=== PATIENT | female | born 1940 | race Caucasian/White ===

== ENCOUNTER → 2016-07-28 | Outpatient (CLI) | payer MEDICARE, OTHER | LOC: RAD 12:48 | PROVIDERS: ATTEND Specialist | DX: C34.90 Malignant neoplasm of unspecified part of unspecified bronchus or lung (principal) | CPT/HCPCS: 82565; 70553; A9577 ==

== ENCOUNTER → 2016-08-01 | Outpatient (CLI) | payer MEDICARE, OTHER | LOC: RAD 09:57 | PROVIDERS: ATTEND Specialist | DX: C34.90 Malignant neoplasm of unspecified part of unspecified bronchus or lung (principal) | CPT/HCPCS: 71260 ==

== ENCOUNTER → 2016-10-21 | Outpatient (CLI) | payer MEDICARE, OTHER | LOC: RAD 07:42 | PROVIDERS: ATTEND Specialist | DX: C34.90 Malignant neoplasm of unspecified part of unspecified bronchus or lung (principal) | CPT/HCPCS: 71260; 74160; 82565 ==

== ENCOUNTER → 2016-12-31 | Outpatient (CLI) | payer MEDICARE, OTHER ==
--- NOTE | 2016-12-31 14:07 | RADIOLOGY REPORT (SQ) ---
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 Images reviewed with lung, soft tissue and bone windows. Reconstructed coronal and sagittal MPR images reviewed. All images stored on PACS. All CT scanners at this facility use dose modulation, iterative reconstruction, and/or weight based d osing when appropriate to reduce radiation dose to as low as reasonably achievable (ALARA). [facility]: Dose Right [facility]: CareDose [facility]: Dose Right [facility]: Teradose 4D [facility]: [employer] CONTRAST TYPE AND DOSE: contrast/concentration: Isovue 370.00 mg/ml; Total Contrast Delivered: 80.0 ml; Total Saline Delivered: 54.0 ml RENAL FUNCTION: Creatinine 0.6 RADIATION DOSE: Up-to-date CT equipment and radiation dose reduction techniques were employed. CTDIv ol: 3.1 mGy. DLP: 122 mGy-cm. . LIMITATIONS: None. FINDINGS: LUNGS AND PLEURA: Post right upper lobectomy. Benign calcified granuloma right lower lobe image 83. No worrisome pulmonary nodules. No focal pulmonary infiltrates. No pleural effusions. No pneumothorax. Diffuse obstructive lung disease. HILAR AND MEDIASTINAL STRUCTURES: No identified masses or abnormal nodes. HEART AND VASCULAR STRUCTURES: No aneurysm or dissection. No central pulmonary emboli. No pericardi al effusion. Minimal coronary artery calcification HARDWARE: Left-sided permanent central line tip superior vena cava UPPER ABDOMEN: No significant findings. Limited exam. THYROID AND OTHER SOFT TISSUES: No masses. No adenopathy. BONES: No significant finding. OTHER: No other significant finding. IMPRESSION: Post right upper lobectomy. Left-sided permanent central line tip superior vena cava. Obstructive lung disease. No other significant findings. TECHNICAL DOCUMENTATION: JOB ID: [id number] Quality ID # [id number]: Final reports with documentation of one or more dose reduction techniques (e.g., Au tomated exposure control, adjustment of the mA and/or kV according to patient size, use of iterative reconstruction technique) 2010 [employer]- All Rights Reserved
== END ==
LOC: RAD 12:40
PROVIDERS: ATTEND Specialist
DX: C34.90 Malignant neoplasm of unspecified part of unspecified bronchus or lung (principal)
CPT/HCPCS: 71260; 82565

== ENCOUNTER 2017-01-23 20:05 | Emergency (ER) | payer MEDICARE, OTHER ==
[2017-01-23] MEDS ORDERED: DIPH/PERTUSS(ACELL)/TETANUS VAC/PF 0.5 ML SYR (>=10YO) IM ONE (20:24)
--- NOTE | 2017-01-23 20:25 | ER Document Report ---
ED Medical Screen (RME) - General Chief Complaint: Fall Stated Complaint: FALL/RIGHT EYE INJURY Time Seen by Provider: 01/23/17 20:17 Notes: Patient is a 76 year old female presenting to the emergency department after a fall. Patient tripped over her 's foot and fell from standing and hit her head. Patient did not catch her fall with her hands/arms.Patient denies any vomiting or loss of consciousness Patient is on xarelto for a-fib. Patient states she also twisted her leg and is having pain in her right hip. Patient has some sciatic nerve pain in the right hip and she has been evaluated for such. Patient has no known allergies. TRAVEL OUTSIDE OF THE [place] IN LAST 30 DAYS: No - Related Data Allergies/Adverse Reactions: No Known Allergies Allergy (Unverified 09/23/16 08:50) Past Medical History Renal/ Medical History: Denies: Hx Peritoneal Dialysis - Immunizations Hx Diphtheria, Pertussis, Tetanus Vaccination: No Physical Exam - Vital signs Vitals: Temp Pulse BP Pulse Ox 97.9 F 73 134/64 H 95 01/23/17 20:13 01/23/17 20:13 01/23/17 20:13 01/23/17 20:13 - Notes Notes: GENERAL: Alert, interacts well. LUNGS: Clear to auscultation bilaterally, no wheezes, rales, or rhonchi. No respiratory distress. HEART: Regular rate and rhythm. No murmurs, gallops, or rubs. ABDOMEN: Soft, non-tender. Non-distended. Bowel sounds present in all 4 quadrants. EXTREMITIES: Patient has some pain with ROM to her right hip. SKIN: patient has 2 non-gaping lacerations just above the right eye brow which are 3cm and 6cm in length; there is moderate swelling with no stepoffs to the superior orbital ridge, slight drooping to the right upper eyelid; there is a hematoma above the right eyebrow. There is a skin tear to the right forearm. Course - Vital Signs Vital signs: Temp Pulse Resp BP Pulse Ox 97.9 F 73 134/64 H 95 01/23/17 20:13 01/23/17 20:13 01/23/17 20:13 01/23/17 20:13 Scribe Documentation - Scribe Written by Shadi:: Shadi Werner 01/23/17 20:28 acting as scribe for :: Suri
--- NOTE | 2017-01-23 20:58 | RADIOLOGY REPORT (SQ) ---
EXAM DESCRIPTION: CT CERVICAL SPINE WITHOUT COMPLETED DATE/TIME: 01/23/2017 8:37 pm REASON FOR STUDY: Fall, hit head, R hip pain, thinners COMPARISON: None. TECHNIQUE: Axial images acquired through the cervical spine without intravenous contrast. Images re viewed with lung, soft tissue and bone windows. Reconstructed coronal and sagittal MPR images review ed. Images stored on PACS. All CT scanners at this facility use dose modulation, iterative reconstruction, and/or weight based d osing when appropriate to reduce radiation dose to as low as reasonably achievable (ALARA). [facility]: Dose Right [facility]: CareDose [facility]: Dose Right [facility]: Teradose 4D [facility]: [employer] RADIATION DOSE: Up-to-date CT equipment and radiation dose reduction techniques were employed. CTDIv ol: 7.2 mGy. DLP: 146 mGy-cm. mGy. LIMITATIONS: None. FINDINGS: ALIGNMENT: Anatomic. MINERALIZATION: Normal. VERTEBRAL BODIES: No fractures or dislocation. DISCS: Multilevel disc space narrowing with osteophytes. FACETS, LATERAL MASSES, POSTERIOR ELEMENTS: Facet arthropathy. No fractures. No dislocation. No ac [place] findings. HARDWARE: None in the spine. VISUALIZED RIBS: No fractures. LUNG APICES AND SOFT TISSUES: No significant or acute findings. OTHER: No other significant finding. IMPRESSION: CHRONIC DEGENERATIVE CHANGES. NO ACUTE FINDINGS. TECHNICAL DOCUMENTATION: JOB ID: [id number] Quality ID # [id number]: Final reports with documentation of one or more dose reduction techniques (e.g., Au tomated exposure control, adjustment of the mA and/or kV according to patient size, use of iterative reconstruction technique) 2010 [employer]- All Rights Reserved
--- NOTE | 2017-01-23 20:59 | RADIOLOGY REPORT (SQ) ---
EXAM DESCRIPTION: CT HEAD WITHOUT COMPLETED DATE/TIME: 01/23/2017 8:37 pm REASON FOR STUDY: Fall, hit head, R hip pain, thinners COMPARISON: MRI dated 07/28/2016. TECHNIQUE: Axial images acquired through the brain without intravenous contrast. Images reviewed wi th bone, brain and subdural windows. Images stored on PACS. All CT scanners at this facility use dose modulation, iterative reconstruction, and/or weight based d osing when appropriate to reduce radiation dose to as low as reasonably achievable (ALARA). [facility]: Dose Right [facility]: CareDose [facility]: Dose Right [facility]: Teradose 4D [facility]: [employer] RADIATION DOSE: Up-to-date CT equipment and radiation dose reduction techniques were employed. CTDIv ol: 60.1 mGy. DLP: 1163 mGy-cm.mGy. LIMITATIONS: None. FINDINGS: VENTRICLES: Prominent. CEREBRUM: No masses. No hemorrhage. No midline shift. Areas of low density in the white matter mos t likely due to chronic micro-vascular ischemic change. No evidence for acute infarction. CEREBELLUM: No masses. No hemorrhage. No alteration of density. No evidence for acute infarction. EXTRAAXIAL SPACES: Age-related involutional change. No fluid collections. No masses. ORBITS AND GLOBE: No intra- or extraconal masses. Normal contour of globe without masses. CALVARIUM: No fracture. PARANASAL SINUSES: No fluid or mucosal thickening. SOFT TISSUES: No mass or hematoma. OTHER: No other significant finding. IMPRESSION: CHRONIC CHANGES OF ATROPHY AND MICROVASCULAR ISCHEMIA. NO ACUTE PROCESS. TECHNICAL DOCUMENTATION: JOB ID: [id number] Quality ID # [id number]: Final reports with documentation of one or more dose reduction techniques (e.g., Au tomated exposure control, adjustment of the mA and/or kV according to patient size, use of iterative reconstruction technique) 2010 [employer]- All Rights Reserved
--- NOTE | 2017-01-23 21:06 | RADIOLOGY REPORT (SQ) ---
EXAM DESCRIPTION: CHEST PA/LAT COMPLETED DATE/TIME: 01/23/2017 8:52 pm REASON FOR STUDY: Fall, hit head, R hip pain, thinners COMPARISON: 03/03/2008. NUMBER OF VIEWS: Two view. TECHNIQUE: Frontal and lateral radiographic views of the chest acquired. LIMITATIONS: None. FINDINGS: LUNGS AND PLEURA: No opacities, masses or pneumothorax. No pleural effusion. Attenuated bl ood vessels and flattened apollo-diaphragms. MEDIASTINUM AND HILAR STRUCTURES: No masses. No contour abnormalities. HEART AND VASCULAR STRUCTURES: Heart normal in size and contour. No evidence for failure. BONES: No acute findings. HARDWARE: Vascular access port. OTHER: No other significant finding. IMPRESSION: COPD. NO ACUTE RADIOGRAPHIC FINDING IN THE CHEST. TECHNICAL DOCUMENTATION: JOB ID: [id number]- All Rights Reserved
--- NOTE | 2017-01-23 21:07 | RADIOLOGY REPORT (SQ) ---
EXAM DESCRIPTION: HIP RIGHT AP/LATERAL COMPLETED DATE/TIME: 01/23/2017 8:52 pm REASON FOR STUDY: Fall, hit head, R hip pain, thinners COMPARISON: None. NUMBER OF VIEWS: Two views. TECHNIQUE: AP pelvis and additional frog-leg view of the right hip. LIMITATIONS: Suboptimal positioning of the right hip. FINDINGS: MINERALIZATION: Normal. RIGHT HIP: Subtle irregularity of the femoral neck. LEFT HIP: No fracture or dislocation. No worrisome bone lesions. PUBIS AND ISCHIUM: No fracture. PELVIS: No fracture. SACRUM: No fracture or dislocation. No worrisome bone lesions. LOWER LUMBAR SPINE: No fracture or dislocation. No worrisome bone lesions. Degenerative disc disease . SOFT TISSUES: No findings. OTHER: No other significant finding. IMPRESSION: LIMITED POSITIONING OF THE RIGHT HIP. SUBTLE IRREGULARITY OF THE FEMORAL NECK CONCERNIN G FOR FRACTURE. TECHNICAL DOCUMENTATION: JOB ID: [id number] [employer]- All Rights Reserved
--- NOTE | 2017-01-23 21:53 | RADIOLOGY REPORT (SQ) ---
EXAM DESCRIPTION: CT PELVIS WITHOUT COMPLETED DATE/TIME: 01/23/2017 9:39 pm REASON FOR STUDY: Possible rt hip fracture irregularity seen on XR COMPARISON: X-ray dated 01/23/2017. TECHNIQUE: CT scan of the pelvis performed without intravenous or oral contrast. Images reviewed wi th soft tissue and bone windows. Reconstructed coronal and sagittal MPR images reviewed. All images stored on PACS. All CT scanners at this facility use dose modulation, iterative reconstruction, and/or weight based d osing when appropriate to reduce radiation dose to as low as reasonably achievable (ALARA). [facility]: Dose Right [facility]: CareDose [facility]: Dose Right [facility]: Teradose 4D [facility]: [employer] RADIATION DOSE: Up-to-date CT equipment and radiation dose reduction techniques were employed. CTDIv ol: 8.0 mGy. DLP: 285 mGy-cm. mGy. LIMITATIONS: None. FINDINGS: PELVIC BONES: No acute fracture. No worrisome bone lesions. VISUALIZED SPINE: No acute findings. HIP(S): Minimally impacted fracture of the right femoral neck, best visualized on the coronal images. PELVIC SOFT TISSUES: No significant findings. EXTRAPELVIC SOFT TISSUES: No significant findings. OTHER: No other significant finding. IMPRESSION: MINIMALLY IMPACTED FRACTURE OF THE RIGHT FEMORAL NECK, BEST VISUALIZED ON THE CORONAL IM AGES. TECHNICAL DOCUMENTATION: JOB ID: [id number] Quality ID # [id number]: Final reports with documentation of one or more dose reduction techniques (e.g., Au tomated exposure control, adjustment of the mA and/or kV according to patient size, use of iterative reconstruction technique) 2010 [employer]- All Rights Reserved
[2017-01-23] MEDS ORDERED: LIDOCAINE 4%/TETRACAINE 0.5%/EPI 0.18% 5 ML TOPICAL SOLN TOP ONE (22:00)
[2017-01-23] MEDS ORDERED: MORPHINE SULFATE 10 MG/ML INJ IM ONE (22:04)
[2017-01-23] MEDS ORDERED: MORPHINE SULFATE 10 MG/ML INJ ONE (22:09)
[2017-01-23 23:42] LABS: ABSOLUTE BASOPHILS # (AUTO) 0.1 10^3/uL (0.0-0.2); ABSOLUTE EOSINOPHILS # (AUTO) 0.1 10^3/uL (0.0-0.6); ABSOLUTE LYMPHOCYTES (AUTO) 0.7 10^3/uL (0.5-4.7); ABSOLUTE MONOCYTES (AUTO) 0.6 10^3/uL (0.1-1.4); ABSOLUTE NEUT (AUTO) 7.6 10^3/uL (1.7-8.2); BASOPHILS % (AUTO) 0.6 % (0-2); EOSINOPHILS % (AUTO) 0.6 % (0-6); HEMATOCRIT 38.2 % (36.0-47.0); HEMOGLOBIN 13.1 g/dL (12.0-15.5); HGB HCT DIFFERENCE 1.1; LYMPHOCYTES % (AUTO) 7.8 % (13-45); MEAN CORPUSCULAR HEMOGLOBIN 33.8 pg (27.0-33.4); MEAN CORPUSCULAR HGB CONC 34.4 g/dL (32.0-36.0); MEAN CORPUSCULAR VOLUME 98 fl (80-97); MONOCYTES % (AUTO) 6.7 % (3-13); RED BLOOD COUNT 3.89 10^6/uL (3.72-5.28); SEGMENTED NEUTROPHILS % (AUTO) 84.3 % (42-78)
[2017-01-23 23:53] LABS: ALANINE AMINOTRANSFERASE 37 U/L (9-52); ALBUMIN 3.8 g/dL (3.5-5.0); ALKALINE PHOSPHATASE 86 U/L (38-126); ANION GAP 10 (5-19); ASPARTATE AMINO TRANSFERASE 26 U/L (14-36); BILIRUBIN,DIRECT 0.3 mg/dL (0.0-0.4); BILIRUBIN,TOTAL 0.5 mg/dL (0.2-1.3); BLOOD UREA NITROGEN 8 mg/dL (7-20); CALCIUM 8.9 mg/dL (8.4-10.2); CARBON DIOXIDE 25 mmol/L (22-30); CHLORIDE 99 mmol/L (98-107); CREATININE RESULT 0.59 mg/dL (0.52-1.25); GLUCOSE 105 mg/dL (75-110); TOTAL PROTEIN 6.6 g/dL (6.3-8.2)
[2017-01-24] MEDS ORDERED: ONDANSETRON HCL INJ/PF 4 MG/2 ML SDV IV ONE (00:03)
[2017-01-24] MEDS ORDERED: LIDOCAINE 1%/EPINEPHRINE INJ 20 ML VIAL INJ ONE (00:03)
[2017-01-24] MEDS ORDERED: MORPHINE SULFATE 10 MG/ML INJ IV ONE (00:03)
--- NOTE | 2017-01-24 00:10 | ER Document Report ---
ED Fall - General Information source: Patient TRAVEL OUTSIDE OF THE [place] IN LAST 30 DAYS: No - HPI Context: Tripped Location of injury/pain: Face - laceration on right forehead, Hip - right <LEE MCLEAN - Last Filed: 01/24/17 03:06> <DESIRAE ROSA - Last Filed: 01/24/17 05:40> <PATY GONSALVES - Last Filed: 01/24/17 08:27> - General Chief Complaint: Fall Stated Complaint: FALL/RIGHT EYE INJURY Time Seen by Provider: 01/23/17 20:17 Notes: Patient is a 76 year old female who presents to the ED with complaints of fall from standing position after tripping over her husbands foot and falling on a wooden deck. Patient hit her head and has a laceration to her right forehead. Patient denies LOC. Patient is on Xarelto for A-Fib. Patient also complains of right hip pain. Patient is normally on 2L of O2 at night time. Patient rates her pain currently as a 6/10 with no movement. (LEE MCLEAN) - Related data Allergies/Adverse Reactions: No Known Allergies Allergy (Unverified 09/23/16 08:50) Past Medical History - General Information source: Patient - Social History Smoking Status: Never Smoker Chew tobacco use (# tins/day): No Frequency of alcohol use: None Drug Abuse: None Family History: Reviewed & Not Pertinent Patient has suicidal ideation: No Patient has homicidal ideation: No - Past Medical History Cardiac Medical History: Reports: Hx Atrial Fibrillation, Hx Hypertension Pulmonary Medical History: Reports: Hx COPD Renal/ Medical History: Denies: Hx Peritoneal Dialysis Past Surgical History: Reports: Hx Orthopedic Surgery, Other - right upper lobectomy - Immunizations Hx Diphtheria, Pertussis, Tetanus Vaccination: No <LEE MCLEAN - Last Filed: 01/24/17 03:06> Review of Systems - Review of Systems Constitutional: No symptoms reported EENT: See HPI, Other - laceration right forehead Cardiovascular: No symptoms reported Respiratory: No symptoms reported Gastrointestinal: No symptoms reported Genitourinary: No symptoms reported Female Genitourinary: No symptoms reported Musculoskeletal: See HPI, Joint pain - right hip pain Skin: See HPI, Other - laceration right forehead Hematologic/Lymphatic: No symptoms reported Neurological/Psychological: No symptoms reported <VINAYLEE - Last Filed: 01/24/17 03:06> Physical Exam - General General appearance: Appears well, Alert - HEENT Head: Other - 3.5 cm curved laceration on right forehead, pinpoint hole lateral of that, vertical 2mm laceration lateral to main laceration Eyes: Normal Extraocular movements intact: Yes Pupils: PERRL Neck: Normal, Supple, Other - non tender - Respiratory Respiratory status: No respiratory distress Chest status: Nontender Breath sounds: Normal Chest palpation: Normal - Cardiovascular Rhythm: Regular Heart sounds: Normal auscultation Murmur: No Pulses: Normal: Posterior tibial, Dorsalis pedis - Abdominal Inspection: Normal Distension: No distension Tenderness: Nontender - Back Back: Normal - Extremities General upper extremity: Normal inspection General lower extremity: Other - see hip Hip: Tender - right hip tender to palpation, Other - pelvis stable - Neurological Neuro grossly intact: Yes - Psychological Associated symptoms: Normal affect, Normal mood - Skin Skin Temperature: Warm Skin Moisture: Dry Skin Color: Normal Skin irregularity: Laceration - 3.5 cm curved laceration on right forehead, pinpoint hole lateral of that, vertical 2mm laceration lateral to main laceration <LEE MCLEAN - Last Filed: 01/24/17 03:06> Course - Laboratory Result Diagrams: 01/23/17 23:33 01/23/17 23:33 [facility]: 01:15 Dr. Baptiste, [facility] Time consulted: 03:06 <LEE MCLEAN - Last Filed: 01/24/17 03:06> - Laboratory Result Diagrams: 01/23/17 23:33 01/23/17 23:33 - Diagnostic Test Radiology reviewed: Reports reviewed - CT scan of his pelvis shows a minimally displaced right femoral neck fracture <DESIRAE ROSA - Last Filed: 01/24/17 05:40> - Laboratory Result Diagrams: 01/23/17 23:33 01/23/17 23:33 <PATY GONSALVES - Last Filed: 01/24/17 08:27> - Re-evaluation Re-evalutation: 01/24/17 01:38 There is no orthopedic coverage at [facility] tonight or through the weekend. Call was made to [facility], the orthopedic surgeon contact center director was a Dr. Rony Townsend who refused the patient because he stated he will not be there in the morning. He later added that the patient's medical problems sound like she should go to [facility]. When I told him they take care of patients like this all the time at [facility], he stated that he was not going to be around in the morning so she would need to go to another facility. A call was placed to [facility], I was told that they would not have a bed for more than 24 hours, and have been at high census in the emergency room for 3 days, and at this time they are not placing any additional patients on the waiting list. (DESIRAE ROSA) 01/24/17 08:27 pt stable, evaluated is in no distress, transport is here at this time ( PATY GONSALVES) - Vital Signs Vital signs: Temp Pulse Resp BP Pulse Ox 97.9 F 73 147/79 H 92 01/23/17 20:13 01/23/17 20:13 01/23/17 21:23 01/23/17 22:00 - Laboratory Laboratory results interpreted by me: 01/23/17 01/23/17 23:33 23:33 MCV 98 H MCH 33.8 H Seg Neutrophils % 84.3 H Lymphocytes % 7.8 L Sodium 134.0 L - Consults Dr. Rony Townsend, [facility] Reason for consultation: 01/24/17 01:35 Discussed patient. He reused patient, stating he was contact center director [facility] but would not be there in the morning. He also stated that she was too complicated from a medical standpoint. (LEE MCLEAN) Dr. Baptiste, [facility] Reason for consultation: 01/24/17 03:07 Discussed patient. Patient is accepted for transfer with request to transfer to to [facility]. (LEE MCLEAN) Procedures - Laceration/Wound Repair Right Upper Face Time completed: 01:20 Wound length (cm): 3.5 Wound's Depth, Shape: Into muscle, Flap, Contused tissue Laceration pre-procedure: Sterile drapes applied, Shur-Clens applied Anesthetic type: Other - 2% lidocaine with epi Volume Anesthetic (mLs): 3 Wound explored: Clean Irrigated w/ Saline (mLs): 20 Wound Debrided: Minimal Wound Repaired With: Sutures Suture Size/Type: 5:0 Number of Sutures: 10 Post-procedure wound care: Sterile dressing applied Post-procedure NV exam normal: Yes Complications: No <DESIRAE ROSA - Last Filed: 01/24/17 05:40> Discharge <LEE MCLEAN - Last Filed: 01/24/17 03:06> <DESIRAE ROSA - Last Filed: 01/24/17 05:40> <PATY GONSALVES - Last Filed: 01/24/17 08:27> - Discharge Clinical Impression: Femoral neck fracture Qualifiers: Encounter type: initial encounter Fracture type: closed Laterality: right Qualified Code(s): S72.001A - Fracture of unspecified part of neck of right femur, initial encounter for closed fracture Laceration of forehead Qualifiers: Encounter type: initial encounter Qualified Code(s): S01.81XA - Laceration without foreign body of other part of head, initial encounter Condition: Stable Disposition: [facility] Referrals: RAY CHOUDHURY MD [Primary Care Provider] - Follow up as needed Scribe Documentation - Scribe Written by Blainee:: rupa Vasquez, 01/24/2017, 0016 acting as scribe for :: Myron <LEE MCLEAN - Last Filed: 01/24/17 03:06>
[2017-01-24 02:47] LABS: PROTHROMBIN TIME 13.8 SEC (11.4-15.4)
[2017-01-24 02:48] LABS: PARTIAL THROMBOPLASTIN TIME 27.6 SEC (23.5-35.8)
[2017-01-24] MEDS ORDERED: DEXTROSE 5%-LACTATED RINGERS 1,000 ML IV ONE (05:42)
[2017-01-24 08:45] VITALS: BP 130/70
== END 2017-01-24 08:45 | disposition short-term general hospital (02) ==
LOC: ER 20:05
PROC: 0HQ1XZZ Repair Face Skin, External Approach (ICD-10-PCS; principal; 2017-01-23)
DX: S72.001A Fracture of unspecified part of neck of right femur, initial encounter for closed fracture (principal); S01.81XA Laceration without foreign body of other part of head, initial encounter; W01.198A Fall on same level from slipping, tripping and stumbling with subsequent striking against other object, initial encounter; I48.91 Unspecified atrial fibrillation; Z79.02 Long term (current) use of antithrombotics/antiplatelets; M25.551 Pain in right hip; Z99.81 Dependence on supplemental oxygen; I10 Essential (primary) hypertension; J44.9 Chronic obstructive pulmonary disease, unspecified; Z23 Encounter for immunization
CPT/HCPCS: 99285; 96372; 90471; 96375; 96365; 36415; 85025; 85610; 85730; 80053; 71020; 73502; 70450; 72125; 72192; 90715; 12013; J2270 ×2; J2405; J3490

== ENCOUNTER → 2017-03-02 | Outpatient (CLI) | payer MEDICARE, OTHER ==
--- NOTE | 2017-03-02 15:35 | RADIOLOGY REPORT (SQ) ---
EXAM DESCRIPTION: CT HEAD WITHOUT COMPLETED DATE/TIME: 03/02/2017 3:26 pm REASON FOR STUDY: CLOSED HEAD INJURY S09.90XA UNSPECIFIED INJURY OF HEAD, INITIAL ENCOUNTER COMPARISON: 01/23/2017 TECHNIQUE: Axial images acquired through the brain without intravenous contrast. Images reviewed wi th bone, brain and subdural windows. Images stored on PACS. All CT scanners at this facility use dose modulation, iterative reconstruction, and/or weight based d osing when appropriate to reduce radiation dose to as low as reasonably achievable (ALARA). [facility]: Dose Right [facility]: CareDose [facility]: Dose Right [facility]: Teradose 4D [facility]: [employer] RADIATION DOSE: Up-to-date CT equipment and radiation dose reduction techniques were employed. CTDIv ol: 49.0 mGy. DLP: 783 mGy-cm.mGy. LIMITATIONS: None. FINDINGS: VENTRICLES: Prominent. CEREBRUM: No masses. No hemorrhage. No midline shift. Areas of low density in the white matter mos t likely due to chronic micro-vascular ischemic change. No evidence for acute infarction. CEREBELLUM: No masses. No hemorrhage. No alteration of density. No evidence for acute infarction. EXTRAAXIAL SPACES: Age-related involutional change. No fluid collections. No masses. ORBITS AND GLOBE: No intra- or extraconal masses. Normal contour of globe without masses. CALVARIUM: No fracture. PARANASAL SINUSES: No fluid or mucosal thickening. SOFT TISSUES: No mass or hematoma. OTHER: No other significant finding. IMPRESSION: CHRONIC CHANGES OF ATROPHY AND MICROVASCULAR ISCHEMIA. NO ACUTE PROCESS. TECHNICAL DOCUMENTATION: JOB ID: [id number] Quality ID # [id number]: Final reports with documentation of one or more dose reduction techniques (e.g., Au tomated exposure control, adjustment of the mA and/or kV according to patient size, use of iterative reconstruction technique) 2010 [employer]- All Rights Reserved
== END ==
LOC: RAD 15:07
PROVIDERS: ATTEND Physician Assistant
DX: S09.90XA Unspecified injury of head, initial encounter (principal); X58.XXXA Exposure to other specified factors, initial encounter
CPT/HCPCS: 70450

== ENCOUNTER → 2017-03-19 | Outpatient (CLI) | payer MEDICARE, OTHER ==
--- NOTE | 2017-03-19 15:19 | RADIOLOGY REPORT (SQ) ---
EXAM DESCRIPTION: MRI HEAD COMBO COMPLETED DATE/TIME: 03/19/2017 2:58 pm REASON FOR STUDY: LUNG CA (C34.90), DIZZINESS (R42) R42 DIZZINESS AND GIDDINESS C34.90 MALIGNANT N EOPLASM OF UNSP PART OF UNSP BRONCHUS OR L COMPARISON: MRI brain 07/28/2016 CT brain 03/02/2017 TECHNIQUE: Multiplanar imaging includes noncontrasted T1, T2, FLAIR, diffusion with ADC map and post gadolinium contrast T1 sequences. Images stored on PACS. CONTRAST TYPE AND DOSE: 10 mL Multihance. RENAL FUNCTION: GFR > 60. LIMITATIONS: Mild motion artifact wake FINDINGS: ANATOMY: No anomalies. Normal vascular flow voids. Pituitary fossa normal. CSF SPACES: Normal in size and contour. No hemorrhage. CEREBRUM: Sulci and gyri normal in size and contour. Moderate bifrontal and biparietal increased whi te matter signal on FLAIR imaging from small vessel disease. . No evidence of hemorrhage, mass, or e xtraaxial fluid collection. No abnormal enhancement post contrast. POSTERIOR FOSSA: Minimal increased FLAIR/ T2 pontine signal from chronic small vessel disease. No hem orrhage. No edema, masses, or mass effect. Internal auditory canals, cerebellopontine angles, mastoid s normal. No enhancing lesions. No abnormal enhancement post contrast. DIFFUSION IMAGING: Negative for acute or subacute infarction. ORBITS: No masses. Globes normal. PARANASAL SINUSES: No fluid levels. Mucosa normal. OTHER: Minimal fluid left mastoid air cells. IMPRESSION: No MRI evidence of brain parenchymal metastatic lesions. Stable white matter disease. No acute infarct or hemorrhage. EVIDENCE OF ACUTE STROKE: NO. TECHNICAL DOCUMENTATION: JOB ID: [id number] [employer] All Rights Reserved
== END ==
LOC: RAD 13:16
PROVIDERS: ATTEND Internal Medicine Hematology & Oncology
DX: C34.90 Malignant neoplasm of unspecified part of unspecified bronchus or lung (principal); R42 Dizziness and giddiness
CPT/HCPCS: 70553; A9577

== ENCOUNTER 2017-12-08 19:30 | Emergency (ER) | payer MEDICARE, OTHER ==
[2017-12-08] MEDS ORDERED: ONDANSETRON HCL INJ/PF 4 MG/2 ML SDV IV ONE (20:33)
[2017-12-08] MEDS ORDERED: MORPHINE SULFATE 10 MG/ML INJ IV ONE (20:36)
[2017-12-08] MEDS ORDERED: LIDOCAINE 1% INJ-PF (10 MG/ML) 30 ML SDV INJ ONE (21:35)
--- NOTE | 2017-12-08 21:45 | RADIOLOGY REPORT (SQ) ---
EXAM DESCRIPTION: CT HEAD WITHOUT COMPLETED DATE/TIME: 12/08/2017 9:33 pm REASON FOR STUDY: fall COMPARISON: 03/02/2017 TECHNIQUE: Axial images acquired through the brain without intravenous contrast. Images reviewed wi th bone, brain and subdural windows. Images stored on PACS. All CT scanners at this facility use dose modulation, iterative reconstruction, and/or weight based d osing when appropriate to reduce radiation dose to as low as reasonably achievable (ALARA). [facility]: Dose Right [facility]: CareDose [facility]: Dose Right [facility]: Teradose 4D [facility]: [employer] RADIATION DOSE: CT Rad equipment meets quality standard of care and radiation dose reduction techniq ues were employed. CTDIvol: 53.2 mGy. DLP: 1070 mGy-cm.mGy. LIMITATIONS: None. FINDINGS: VENTRICLES: Prominent. CEREBRUM: No masses. No hemorrhage. No midline shift. Areas of low density in the white matter mos t likely due to chronic micro-vascular ischemic change. No evidence for acute infarction. CEREBELLUM: No masses. No hemorrhage. No alteration of density. No evidence for acute infarction. EXTRAAXIAL SPACES: Age-related involutional change. No fluid collections. No masses. CALVARIUM: No fracture. SOFT TISSUES: No mass or hematoma. OTHER: No other significant finding. IMPRESSION: NO ACUTE INTRACRANIAL PROCESS. PLEASE SEE CT FACE REPORT REGARDING FACIAL FRACTURES. EVIDENCE OF ACUTE STROKE: NO. TECHNICAL DOCUMENTATION: JOB ID: [id number] Quality ID # [id number]: Final reports with documentation of one or more dose reduction techniques (e.g., Au tomated exposure control, adjustment of the mA and/or kV according to patient size, use of iterative reconstruction technique) 2010 [employer]- All Rights Reserved Reading location - IP/workstation name: [email or web address]
--- NOTE | 2017-12-08 21:48 | RADIOLOGY REPORT (SQ) ---
EXAM DESCRIPTION: CT FACIAL AREA WITHOUT COMPLETED DATE/TIME: 12/08/2017 9:33 pm REASON FOR STUDY: fall, right jaw pain COMPARISON: None. TECHNIQUE: Noncontrasted images through the facial bones and orbits windowed for bone and soft tissu e. Additional coronal and sagittal reconstructed images reviewed. All images stored on PACS. All CT scanners at this facility use dose modulation, iterative reconstruction, and/or weight based d osing when appropriate to reduce radiation dose to as low as reasonably achievable (ALARA). [facility]: Dose Right [facility]: CareDose [facility]: Dose Right [facility]: Teradose 4D [facility]: [employer] RADIATION DOSE: CT Rad equipment meets quality standard of care and radiation dose reduction techniq ues were employed. CTDIvol: 30.4 mGy. DLP: 509 mGy-cm. mGy. LIMITATIONS: None. FINDINGS: FACIAL BONES: Segmental fracture involving the right zygomatic arch with moderate depressi on. Mildly displaced oblique fracture through the right mandibular ramus. ORBITS: Intact. No fracture. Symmetric intact globes and retroorbital soft tissues. PARANASAL SINUSES: Clear. No significant mucosal thickening, mass or fluid. No nasal polyps. Maxill jelani sinus outlets are patent. SOFT TISSUES: Associated soft tissue swelling and subcutaneous gas. INFERIOR BRAIN: Limited view. No acute findings. OTHER: No other significant finding. IMPRESSION: RIGHT MANDIBULAR AND RIGHT ZYGOMATIC ARCH FRACTURES DETAILED ABOVE. TECHNICAL DOCUMENTATION: JOB ID: [id number] Quality ID # [id number]: Final reports with documentation of one or more dose reduction techniques (e.g., Au tomated exposure control, adjustment of the mA and/or kV according to patient size, use of iterative reconstruction technique) 2010 [employer]- All Rights Reserved Reading location - IP/workstation name: [email or web address]
--- NOTE | 2017-12-08 21:49 | RADIOLOGY REPORT (SQ) ---
EXAM DESCRIPTION: HIP RIGHT AP/LATERAL COMPLETED DATE/TIME: 12/08/2017 9:38 pm REASON FOR STUDY: right hip pain COMPARISON: 01/23/2017 NUMBER OF VIEWS: Two views. TECHNIQUE: AP pelvis and additional frog-leg view of the right hip. LIMITATIONS: None. FINDINGS: MINERALIZATION: Normal. RIGHT HIP: Intact internal fixation hardware. No fracture or dislocation. No worrisome bone lesions . LEFT HIP: No fracture or dislocation. No worrisome bone lesions. PUBIS AND ISCHIUM: No fracture. PELVIS: No fracture. SACRUM: No fracture or dislocation. No worrisome bone lesions. LOWER LUMBAR SPINE: No fracture or dislocation. No worrisome bone lesions. Degenerative disc disease . SOFT TISSUES: No findings. OTHER: Spinal stimulator. IMPRESSION: NO RADIOGRAPHIC EVIDENCE OF ACUTE INJURY. TECHNICAL DOCUMENTATION: JOB ID: [id number] [email or web address]- All Rights Reserved Reading location - IP/workstation name: [email or web address]
--- NOTE | 2017-12-08 22:11 | ER Document Report ---
ED General - General Chief Complaint: Laceration Stated Complaint: FALL/LACERATION TO CHEEK, JAW PAIN Time Seen by Provider: 12/08/17 20:22 Mode of Arrival: Wheelchair Information source: Patient, Relative - Notes: 77-year-old otherwise healthy female presents to the emergency department after a mechanical fall in her home. Patient reports that she was ambulating into the bathroom with her walker when she turned, lost her footing and fell striking right side of her face on a metal decoration that was mounted to the bottom of the wall. Patient also reports that she landed on her right hip and has subsequent hip pain. Patient reports that she has a history of 3 pins placed to the right hip. Patient denies any loss of consciousness. Patient has an approximate 2 cm laceration to her right cheek near the zygomatic bone. TRAVEL OUTSIDE OF THE [place] IN LAST 30 DAYS: No - Related Data Allergies/Adverse Reactions: No Known Allergies Allergy (Unverified 09/23/16 08:50) Past Medical History - General Information source: Patient, Relative - Social History Smoking Status: Never Smoker Chew tobacco use (# tins/day): No Frequency of alcohol use: None Drug Abuse: None Family History: Reviewed & Not Pertinent Patient has suicidal ideation: No Patient has homicidal ideation: No - Past Medical History Cardiac Medical History: Reports: Hx Atrial Fibrillation, Hx Hypertension Pulmonary Medical History: Reports: Hx COPD Renal/ Medical History: Denies: Hx Peritoneal Dialysis Past Surgical History: Reports: Hx Orthopedic Surgery, Other - right upper lobectomy - Immunizations Hx Diphtheria, Pertussis, Tetanus Vaccination: No Review of Systems - Review of Systems Constitutional: No symptoms reported EENT: No symptoms reported Cardiovascular: No symptoms reported Respiratory: No symptoms reported Gastrointestinal: No symptoms reported Genitourinary: No symptoms reported Female Genitourinary: No symptoms reported Musculoskeletal: See HPI Skin: See HPI Hematologic/Lymphatic: No symptoms reported Neurological/Psychological: No symptoms reported Physical Exam - Vital signs Vitals: Temp Pulse Resp BP Pulse Ox 97.3 F 73 17 143/79 H 97 12/08/17 19:42 12/08/17 19:42 12/08/17 19:42 12/08/17 19:42 12/08/17 19:42 - Notes Notes: PHYSICAL EXAMINATION: GENERAL: Well-appearing, well-nourished and in no acute distress. HEAD: Normocephalic. Laceration to right cheek measuring approximately 2cm. EYES: Pupils equal round and reactive to light, extraocular movements intact, conjunctiva are normal. ENT: Nares patent, oropharynx clear without exudates. Moist mucous membranes. NECK: Normal range of motion, supple without lymphadenopathy LUNGS: Breath sounds clear to auscultation bilaterally and equal. No wheezes rales or rhonchi. HEART: Regular rate and rhythm without murmurs ABDOMEN: Soft, nontender, nondistended abdomen. No guarding, no rebound. No masses appreciated. Female : Deferred. Musculoskeletal: Normal range of motion, no pitting or edema. No cyanosis. Pain on palpation to right hip, no shortening, no abnormal rotation. NEUROLOGICAL: Cranial nerves grossly intact. Normal speech. Normal sensory, motor exams PSYCH: Normal mood, normal affect. SKIN: Warm, Dry, normal turgor, no rashes or lesions noted, see facial laceration above. Course - Re-evaluation Re-evalutation: 77-year-old female patient who presents to the emergency department via POV accompanied by her . Patient and report that she fell while ambulating into the bathroom striking the right side of her face on a metal decoration that was mailed to the wall. Patient denies any dizziness, patient reports that she turned abruptly and lost her footing. Patient does have approximately 2 cm laceration to the right side of her face near the zygomatic bone there is no active bleeding at this time. Patient is also complaining of right hip pain on palpation patient does have a history of 3 pins to this hip however there is no external rotation shortening. Patient's states that patient typically uses a walker at home for ambulation and she was able to ambulate after the fall with his assistance. Patient denies any loss of consciousness after the fall. Will order hip x-ray, facial bone CT as well as head CT and reevaluate patient. Patient is able to open and close mouth without difficulties. Right hip x-ray is unremarkable and there are no fractures or dislocations. Head CT is unremarkable. Facial bones CT shows a right mandibular and right zygomatic arch fracture. The right mandibular fracture is mildly displaced and is an oblique fracture through the ramus. Consulted attending physician, Dr. Alcaraz who recommends contacting ENT on-call, Dr. Patel to try to set up follow-up care. Spoke with Dr. Patel who went over the CT images and made the recommendation that oral surgery would be the most appropriate specialty for this patient as they can deal specifically with the mandible fracture. Called and spoke with Dr. Antunez, Oral surgery on-call who agrees to see this patient in the office, I will have patient call first thing in the morning. Will repair patients laceration and discharge as long as we are able to ambulate her without significant hip pain. Laceration repaired (see procedure notes), patient ambulated in hallway with minimal assistance. Will d/c home at this time. patient offered pain medication which she declined as she states that she already has pain medications at home prescribed by her primary care doctor. - Vital Signs Vital signs: Temp Pulse Resp BP Pulse Ox 97.3 F 73 16 145/71 H 97 12/08/17 19:42 12/08/17 19:42 12/08/17 23:01 12/08/17 23:01 12/08/17 23:01 Procedures - Laceration/Wound Repair Right face/cheek Wound length (cm): 2 Wound's Depth, Shape: Irregular Laceration pre-procedure: Sterile PPE donned, Sterile drapes applied, Shur- Clens applied Anesthetic type: 1% Lidocaine Volume Anesthetic (mLs): 5 Wound explored: Clean Irrigated w/ Saline (mLs): 30 Wound Repaired With: Sutures Suture Size/Type: 6:0, Nylon Number of Sutures: 6 Layer Closure?: No Post-procedure wound care: Sterile dressing applied Complications: No Adult Head Front/Back picture: 1 - 2cm laceration Discharge - Discharge Clinical Impression: Hip pain, right Mandibular fracture, closed Qualifiers: Encounter type: initial encounter Mandible location: ramus Laterality: right Qualified Code(s): S02.641A - Fracture of ramus of right mandible, initial encounter for closed fracture Zygomatic arch fracture Qualifiers: Encounter type: initial encounter Fracture type: closed Laterality: right Qualified Code(s): S02.40EA - Zygomatic fracture, right side, initial encounter for closed fracture Facial laceration Qualifiers: Encounter type: initial encounter Qualified Code(s): S01.81XA - Laceration without foreign body of other part of head, initial encounter Fall Qualifiers: Encounter type: initial encounter Qualified Code(s): W19.XXXA - Unspecified fall, initial encounter Condition: Stable Disposition: HOME, SELF-CARE Additional Instructions: Facial Bone Fracture You have a fracture of the facial bones (zygomatic and mandibular). At first, the injured area should be cold-packed frequently. Rest in a semi-sitting position if possible. When pain and swelling subside, you can return to regular activities. The fracture must remain undisturbed. Call the doctor or return for re-evaluation if you suspect a re-injury, or if any of the following signs of complications occur: continued drainage of fluid or blood from the nose, fever, severe facial swelling or increasing pain, numbness, or loss of vision. Laceration Care Your laceration has been sutured to keep the skin edges aligned during healing. The time of suture removal depends on the nature and location of your cut. YOUR SUTURES SHOULD BE REMOVED IN 5 DAYS. Please follow the care instructions the doctor has outlined for you and return for further care, according to the schedule you've been given. Keep the wound and dressing clean. Unless you were told otherwise, you may shower daily, blotting the wound dry with a clean, unused towel. At other times, If the dressing gets wet or blood soaked, remove it and blot the wound dry, then reapply a new dressing. Unless you were instructed otherwise, dressings should be changed at least daily. If any signs of infection occur (swelling, redness, increasing tenderness, red streaks, tender lumps in the armpit or groin above the laceration, or fever), see the doctor immediately. Please follow-up with oral surgery, Dr. Antunez. Please call in the morning to make an appointment as I have already spoken with him regarding her case. Please take the radiology disk that I provided to you to your appointment. Use ibuprofen as needed for inflammation. You indicated that you already have pain medications at home. Please take these as prescribed. Referrals: RAY CHOUDHURY MD [Primary Care Provider] - Follow up as needed RODRI ANTUNEZ DDS [ACTIVE STAFF] - Follow up as needed
[2017-12-08 23:38] VITALS: BP 145/71
[2017-12-08] MEDS ORDERED: HEPARIN SOD (PORCINE) 1,000 UNIT/ML 10 ML VIAL IV ONE (23:51)
== END 2017-12-09 00:09 | disposition home or self-care (01) ==
LOC: ER 19:30
DX: S02.641A Fracture of ramus of right mandible, initial encounter for closed fracture (principal); S02.40EA Zygomatic fracture, right side, initial encounter for closed fracture; S01.411A Laceration without foreign body of right cheek and temporomandibular area, initial encounter; M25.551 Pain in right hip; W18.39XA Other fall on same level, initial encounter; W22.09XA Striking against other stationary object, initial encounter; Y93.89 Activity, other specified; Y92.009 Unspecified place in unspecified non-institutional (private) residence as the place of occurrence of the external cause; I10 Essential (primary) hypertension; J44.9 Chronic obstructive pulmonary disease, unspecified
CPT/HCPCS: 36591; 99284; 96374; 96375; 73502; 70450; 70486; 12011; J2270; J2405

== ENCOUNTER 2018-11-05 09:16 | Emergency (ER) | payer MEDICARE, OTHER ==
[2018-11-05] MEDS ORDERED: NORMAL SALINE 1000 ML 1,000 ML IV ONE ×2 (10:06→12:58)
--- NOTE | 2018-11-05 10:06 | RADIOLOGY REPORT (SQ) ---
EXAM DESCRIPTION: CT HEAD WITHOUT COMPLETED DATE/TIME: 11/05/2018 9:50 am REASON FOR STUDY: ams COMPARISON: 12/08/2017 TECHNIQUE: Axial images acquired through the brain without intravenous contrast. Images reviewed wi th bone, brain and subdural windows. Additional sagittal and coronal reconstructions were generated. Images stored on PACS. All CT scanners at this facility use dose modulation, iterative reconstruction, and/or weight based d osing when appropriate to reduce radiation dose to as low as reasonably achievable (ALARA). [facility]: Dose Right [facility]: CareDose [facility]: Dose Right [facility]: Teradose 4D [facility]: [employer] RADIATION DOSE: CT Rad equipment meets quality standard of care and radiation dose reduction techniq ues were employed. CTDIvol: 53.2 mGy. DLP: 1044 mGy-cm. mGy. LIMITATIONS: None. FINDINGS: VENTRICLES: Ventricles are enlarged. Since prior study a right ventricular shunt has been placed. The catheter inter is in the right parietal region. It pierces the posterior horn of the r ight lateral ventricle extends through the body of the ventricle and at tip appears to lie in the rig ht frontal lobe. CEREBRUM: No masses. No hemorrhage. No midline shift. No evidence for acute infarction. There is d ecreased attenuation throughout the periventricular white matter which may be related to small vessel disease subependymal flow of CSF. CEREBELLUM: No masses. No hemorrhage. No alteration of density. No evidence for acute infarction. EXTRAAXIAL SPACES: No fluid collections. No masses. ORBITS AND GLOBE: No intra- or extraconal masses. Normal contour of globe without masses. CALVARIUM: No fracture. PARANASAL SINUSES: No fluid or mucosal thickening. SOFT TISSUES: No mass or hematoma. OTHER: No other significant finding. IMPRESSION: Enlargement of the ventricles. There is been placement a right-sided [employer]ER shunt since reynaldo or study. The tip appears to extend through the anterior horn of the right lateral ventricle into th e right frontal lobe. Decreased attenuation throughout the periventricular white matter as discussed above. EVIDENCE OF ACUTE STROKE: NO. COMMENT: Quality ID # [id number]: Final reports with documentation of one or more dose reduction techniques (e.g., Automated exposure control, adjustment of the mA and/or kV according to patient size, use of iterative reconstruction technique) TECHNICAL DOCUMENTATION: JOB ID: [id number]- All Rights Reserved Reading location - IP/workstation name: [email or web address]
[2018-11-05 10:17] LABS: HEMATOCRIT 41.6 % (36.0-47.0); HEMOGLOBIN 14.5 g/dL (12.0-15.5); MEAN CORPUSCULAR HGB CONC 34.7 g/dL (32.0-36.0); MEAN CORPUSCULAR VOLUME 95 fl (80-97); PLATELET COUNT 237 10^3/uL (150-450); RED BLOOD COUNT 4.38 10^6/uL (3.72-5.28); RED CELL DISTRIBUTION WIDTH 13.9 % (11.5-14.0); WHITE BLOOD COUNT 13.8 10^3/uL (4.0-10.5)
[2018-11-05] MEDS ORDERED: ACETAMINOPHEN 325 MG SUPP.RECT PR ONE (10:18)
[2018-11-05] MEDS ORDERED: AMPICILLIN SOD/SULBACTAM 3 GM VIAL IV ONE (10:19)
--- NOTE | 2018-11-05 10:20 | RADIOLOGY REPORT (SQ) ---
EXAM DESCRIPTION: SHUNTOGRAM SERIES COMPLETED DATE/TIME: 11/05/2018 10:05 am REASON FOR STUDY: ams recent shunt placement COMPARISON: None. TECHNIQUE: Radiographic shunt series, frontal neck, chest, and abdominal radiographs. LIMITATIONS: None. FINDINGS: Shunt catheter tubing is imaged from the level of the shunt valve about the right skullbas e through the abdomen. There is no evidence of catheter kinking or discontinuity. The catheter is l ooped about the abdomen with the tip positioned beneath the diaphragm in the left upper quadrant. Cardiomegaly without acute abnormality of the lungs. Left chest port catheter. Thoracic spinal stim ulator leads. Kyphoplasty of the L1 vertebral body. Nonobstructive pattern of bowel gas with gas an d stool present to the rectum. Acuña catheter positioned in the bladder. Right femoral neck screw f ixation. IMPRESSION: Shunt catheter tubing is imaged from the level of the shunt valve about the right skullb ase through the abdomen. There is no evidence of catheter kinking or discontinuity. The catheter is looped about the abdomen with the tip positioned beneath the diaphragm in the left upper quadrant. TECHNICAL DOCUMENTATION: JOB ID: [id number] [employer]- All Rights Reserved Reading location - IP/workstation name: [email or web address]
[2018-11-05 10:22] LABS: VENOUS BLOOD HCO3 25.1 mmol/L (20-32); VENOUS BLOOD PCO2 34.6 mmHg (35-63); VENOUS BLOOD PH 7.48 (7.30-7.42)
[2018-11-05] MEDS ORDERED: VANCOMYCIN HCL INJ 1000 MG VIAL IV ONE (10:23)
[2018-11-05 10:29] LABS: ALANINE AMINOTRANSFERASE 28 U/L (9-52); ALBUMIN 3.8 g/dL (3.5-5.0); ALKALINE PHOSPHATASE 81 U/L (38-126); ANION GAP 15 (5-19); ASPARTATE AMINO TRANSFERASE 44 U/L (14-36); BILIRUBIN,DIRECT 0.3 mg/dL (0.0-0.4); BILIRUBIN,TOTAL 1.5 mg/dL (0.2-1.3); BLOOD UREA NITROGEN 12 mg/dL (7-20); CALCIUM 9.2 mg/dL (8.4-10.2); CARBON DIOXIDE 25 mmol/L (22-30); CHLORIDE 88 mmol/L (98-107); GLUCOSE 114 mg/dL (75-110); POTASSIUM 4.2 mmol/L (3.6-5.0); SODIUM 127.7 mmol/L (137-145); TOTAL PROTEIN 6.6 g/dL (6.3-8.2)
[2018-11-05] MEDS ORDERED: CEFEPIME 2 GM/D5W RTU 2 GM/50 ML RTUPB IV SCH (10:30)
[2018-11-05 10:31] LABS: PROTHROMBIN TIME 13.7 SEC (11.4-15.4)
--- NOTE | 2018-11-05 10:33 | ER Document Report ---
ED General - General Chief Complaint: Altered Mental Status Stated Complaint: ALTERED MENTAL STATUS Time Seen by Provider: 11/05/18 09:40 Primary Care Provider: RAY CHOUDHURY MD [Primary Care Provider] - Follow up as needed Mode of Arrival: Medic Information source: Relative, Emergency Med Personnel, [facility] Records Cannot obtain history due to: Altered mental status Notes: 78-year-old female with atrial fibrillation, COPD, hypertension presents via EMS from home with altered mental status. Patient is unable to provide any history so the family who is at the bedside provides all of the history. Family states that after a recent fall patient had fluid on her brain which required a STRAPPER AND BUFFER shunt placement which was done 3 days prior to arrival by Dr. Cruz neurosurgeon at [facility]. Family reports that ye upon discharge patient was confused but could still talk and recognize family members. They states that since she woke up in the middle of the night vomiting she has been nonverbal, confused, and does not recognize anyone. reports that when the patient vomited she was laying flat and he does believe that she may have aspirated. TRAVEL OUTSIDE OF THE [place] IN LAST 30 DAYS: No - HPI Onset: This morning Onset/Duration: Sudden - Related Data Allergies/Adverse Reactions: No Known Allergies Allergy (Unverified 09/23/16 08:50) Past Medical History - General Information source: Relative, Emergency Med Personnel, [facility] Records Cannot obtain history due to: Altered mental status - Social History Smoking Status: Former Smoker Frequency of alcohol use: None Drug Abuse: None Lives with: Family, Spouse/Significant other Family History: Reviewed & Not Pertinent - Past Medical History Cardiac Medical History: Reports: Hx Atrial Fibrillation, Hx Hypertension Pulmonary Medical History: Reports: Hx COPD Renal/ Medical History: Denies: Hx Peritoneal Dialysis Past Surgical History: Reports: Hx Orthopedic Surgery, Other - right upper lobectomy - Immunizations Hx Diphtheria, Pertussis, Tetanus Vaccination: No Review of Systems - Review of Systems -: Yes ROS unobtainable due to patient's medical condition Gastrointestinal: Vomiting Neurological/Psychological: Confusion Physical Exam - Vital signs Vitals: Pulse Resp BP Pulse Ox 86 18 120/72 93 11/05/18 09:23 11/05/18 09:23 11/05/18 09:23 11/05/18 09:23 - Notes Notes: PHYSICAL EXAMINATION: GENERAL: [id number], GCS 9 HEAD: Surgical wound clean dry and intact, without purulent drainage on the right parietal region. EYES: Pupils equal round and reactive to light, conjunctiva are normal. ENT: Nares patent, oropharynx clear without exudates. Moist mucous membranes. NECK: Normal range of motion, supple without lymphadenopathy LUNGS: Breath sounds clear to auscultation bilaterally and equal. No wheezes rales or rhonchi. HEART: Regular rate and rhythm without murmurs ABDOMEN: Soft, nontender, nondistended abdomen. No guarding, no rebound. No masses appreciated. Surgical wound clean dry and intact no purulent drainage Female : deferred Musculoskeletal: No edema NEUROLOGICAL: GCS 9. Responds to painful stimuli only PSYCH: Unresponsive SKIN: Warm, Dry, normal turgor, no rashes or lesions noted. Course - Re-evaluation Re-evalutation: 11/05/18 12:56 Laboratory 11/05/18 11/05/18 11/05/18 09:28 09:30 09:30 WBC 13.8 H RBC 4.38 Hgb 14.5 Hct 41.6 MCV 95 MCH 33.0 MCHC 34.7 RDW 13.9 Plt Count 237 Total Counted 100 Seg Neutrophils % Not Reportable Seg Neuts % (Manual) 89 H Lymphocytes % Not Reportable Lymphocytes % (Manual) 1 L Monocytes % Not Reportable Monocytes % (Manual) 10 Eosinophils % Not Reportable Eosinophils % (Manual) 0 Basophils % Not Reportable Basophils % (Manual) 0 Absolute Neutrophils Not Reportable Abs Neuts (Manual) 12.3 H Absolute Lymphocytes Not Reportable Abs Lymphs (Manual) 0.1 L Absolute Monocytes Not Reportable Abs Monocytes (Manual) 1.4 Absolute Eosinophils Not Reportable Absolute Eos (Manual) 0.0 Absolute Basophils Not Reportable Abs Basophils (Manual) 0.0 Platelet Comment ADEQUATE Anisocytosis SLIGHT PT 13.7 INR 1.00 VBG pH VBG pCO2 VBG HCO3 VBG Base Excess Sodium Potassium Chloride Carbon Dioxide Anion Gap BUN Creatinine Est GFR ( Amer) Est GFR (Non-Af Amer) Glucose POC Glucose 115 H Lactic Acid Calcium Total Bilirubin Direct Bilirubin Neonat Total Bilirubin Neonat Direct Bilirubin Neonat Indirect Bili AST ALT Alkaline Phosphatase Total Protein Albumin Urine Color Urine Appearance Urine pH Ur Specific [place] Urine Protein Urine Glucose (UA) Urine Ketones Urine Blood Urine Nitrite Urine Bilirubin Urine Urobilinogen Ur Leukocyte Esterase Urine WBC (Auto) Urine RBC (Auto) Urine Mucus (Auto) Urine Ascorbic Acid 11/05/18 11/05/18 11/05/18 09:30 09:30 09:30 WBC RBC Hgb Hct MCV MCH MCHC RDW Plt Count Total Counted Seg Neutrophils % Seg Neuts % (Manual) Lymphocytes % Lymphocytes % (Manual) Monocytes % Monocytes % (Manual) Eosinophils % Eosinophils % (Manual) Basophils % Basophils % (Manual) Absolute Neutrophils Abs Neuts (Manual) Absolute Lymphocytes Abs Lymphs (Manual) Absolute Monocytes Abs Monocytes (Manual) Absolute Eosinophils Absolute Eos (Manual) Absolute Basophils Abs Basophils (Manual) Platelet Comment Anisocytosis PT INR VBG pH 7.48 H VBG pCO2 34.6 L VBG HCO3 25.1 VBG Base Excess 2.0 Sodium 127.7 L Potassium 4.2 Chloride 88 L Carbon Dioxide 25 Anion Gap 15 BUN 12 Creatinine 0.48 L Est GFR ( Amer) > 60 Est GFR (Non-Af Amer) > 60 Glucose 114 H POC Glucose Lactic Acid 1.1 Calcium 9.2 Total Bilirubin 1.5 H Direct Bilirubin 0.3 Neonat Total Bilirubin Not Reportable Neonat Direct Bilirubin Not Reportable Neonat Indirect Bili Not Reportable AST 44 H ALT 28 Alkaline Phosphatase 81 Total Protein 6.6 Albumin 3.8 Urine Color Urine Appearance Urine pH Ur Specific [place] Urine Protein Urine Glucose (UA) Urine Ketones Urine Blood Urine Nitrite Urine Bilirubin Urine Urobilinogen Ur Leukocyte Esterase Urine WBC (Auto) Urine RBC (Auto) Urine Mucus (Auto) Urine Ascorbic Acid 11/05/18 09:40 WBC RBC Hgb Hct MCV MCH MCHC RDW Plt Count Total Counted Seg Neutrophils % Seg Neuts % (Manual) Lymphocytes % Lymphocytes % (Manual) Monocytes % Monocytes % (Manual) Eosinophils % Eosinophils % (Manual) Basophils % Basophils % (Manual) Absolute Neutrophils Abs Neuts (Manual) Absolute Lymphocytes Abs Lymphs (Manual) Absolute Monocytes Abs Monocytes (Manual) Absolute Eosinophils Absolute Eos (Manual) Absolute Basophils Abs Basophils (Manual) Platelet Comment Anisocytosis PT INR VBG pH VBG pCO2 VBG HCO3 VBG Base Excess Sodium Potassium Chloride Carbon Dioxide Anion Gap BUN Creatinine Est GFR ( Amer) Est GFR (Non-Af Amer) Glucose POC Glucose Lactic Acid Calcium Total Bilirubin Direct Bilirubin Neonat Total Bilirubin Neonat Direct Bilirubin Neonat Indirect Bili AST ALT Alkaline Phosphatase Total Protein Albumin Urine Color YELLOW Urine Appearance SLIGHTLY-CLOUDY Urine pH 6.0 Ur Specific [place] 1.016 Urine Protein NEGATIVE Urine Glucose (UA) NEGATIVE Urine Ketones 80 H Urine Blood MODERATE H Urine Nitrite NEGATIVE Urine Bilirubin NEGATIVE Urine Urobilinogen NEGATIVE Ur Leukocyte Esterase NEGATIVE Urine WBC (Auto) 1 Urine RBC (Auto) 13 Urine Mucus (Auto) FEW Urine Ascorbic Acid NEGATIVE Head CT 11/05/18 09:40 IMPRESSION: Enlargement of the ventricles. There is been placement a right-sided STRAPPER AND BUFFER shunt since prior study. The tip appears to extend through the anterior horn of the right lateral ventricle into the right frontal lobe. Decreased attenuation throughout the periventricular white matter as discussed above. EVIDENCE OF ACUTE STROKE: NO. Shuntogram 11/05/18 09:41 IMPRESSION: Shunt catheter tubing is imaged from the level of the shunt valve about the right skullbase through the abdomen. There is no evidence of catheter kinking or discontinuity. The catheter is looped about the abdomen with the tip positioned beneath the diaphragm in the left upper quadrant. Temp Pulse Resp BP Pulse Ox 86 23 H 117/62 99 11/05/18 09:23 11/05/18 12:06 11/05/18 12:06 11/05/18 12:06 78-year-old female presents via EMS with her family who is concerned for altered mental status. Per the family patient was recently discharged yesterday from [facility] after being admitted for normal pressure hydrocephalus for which a STRAPPER AND BUFFER shunt was placed. reports upon discharge yesterday patient was talkative, alert but since last night she has become nonverbal, nonresponsive, confused. He also states that the patient had a large episode of vomiting last night. Vital signs reviewed and patient does have a low-grade temp of 100.6. GCS is 9. She does not follow commands. She does respond to verbal stimuli. CBC does show a mild leukocytosis. CMP does show hyponatremia. Patient did receive IV fluids for this. CT of the brain shows enlarged ventricles, shunt and appropriate position. I did speak to XANDER Dutton for Dr. Srinivas Cruz who has contacted the transfer line and has accepted the patient for transfer. Accepting attending is Dr. Srinivas Cruz. Patient did receive vancomycin and cefepime during her ED course. Family agreeable to discharge to [facility]. 11/05/18 12:58 - Vital Signs Vital signs: Temp Pulse Resp BP Pulse Ox 86 23 H 117/62 99 11/05/18 09:23 11/05/18 12:06 11/05/18 12:06 11/05/18 12:06 - Laboratory Result Diagrams: 11/05/18 09:30 11/05/18 09:30 Laboratory results interpreted by me: 11/05/18 11/05/18 11/05/18 09:28 09:30 09:30 WBC 13.8 H Seg Neuts % (Manual) 89 H Lymphocytes % (Manual) 1 L Abs Neuts (Manual) 12.3 H Abs Lymphs (Manual) 0.1 L VBG pH VBG pCO2 Sodium 127.7 L Chloride 88 L Creatinine 0.48 L Glucose 114 H POC Glucose 115 H Total Bilirubin 1.5 H AST 44 H Urine Ketones Urine Blood 11/05/18 11/05/18 09:30 09:40 WBC Seg Neuts % (Manual) Lymphocytes % (Manual) Abs Neuts (Manual) Abs Lymphs (Manual) VBG pH 7.48 H VBG pCO2 34.6 L Sodium Chloride Creatinine Glucose POC Glucose Total Bilirubin AST Urine Ketones 80 H Urine Blood MODERATE H - Diagnostic Test Radiology reviewed: Image reviewed, Reports reviewed Discharge - Discharge Clinical Impression: History of normal pressure hydrocephalus, Hyponatremia Altered mental status Qualifiers: Altered mental status type: somnolence Qualified Code(s): R40.0 - Somnolence Condition: Fair Disposition: [facility] Referrals: RAY CHOUDHURY MD [Primary Care Provider] - Follow up as needed
[2018-11-05 10:52] LABS: ABSOLUTE LYMPHOCYTES# (MANUAL) 0.1 10^3/uL (0.5-4.7); ABSOLUTE MONOCYTES # (MANUAL) 1.4 10^3/uL (0.1-1.4); ABSOLUTE NEUTROPHILS# (MANUAL) 12.3 10^3/uL (1.7-8.2); BASOPHILS % (MANUAL) 0 % (0-2); EOSINOPHILS % (MANUAL) 0 % (0-6); LYMPHOCYTES % (MANUAL) 1 % (13-45); MONOCYTES % (MANUAL) 10 % (3-13); SEGMENTED NEUTROPHILS % (MAN) 89 % (42-78); TOTAL CELLS COUNTED 100
[2018-11-05 10:52] LABS: APPEARANCE,URINE SLIGHTLY-CLOUDY; BILIRUBIN,URINE NEGATIVE (NEGATIVE); COLOR,URINE YELLOW; GLUCOSE, URINE NEGATIVE (NEGATIVE); KETONES,URINE 80 mg/dL (NEGATIVE); LEUKOCYTE ESTERASE,URINE NEGATIVE (NEGATIVE); NITRITE,URINE NEGATIVE (NEGATIVE); PROTEIN,URINE NEGATIVE (NEGATIVE); URINE SPECIFIC GRAVITY 1.016; UROBILINOGEN,URINE NEGATIVE mg/dL (<2.0)
[2018-11-05 10:57] LABS: ANISOCYTOSIS SLIGHT; PLATELET COMMENT ADEQUATE
--- NOTE | 2018-11-05 15:01 | ER Document Report ---
Doctor's Note Notes: 11/05/18 15:00 [facility] is here to transport patient to [facility]. She is presently on their monitor. Her vital signs are stable. She is in no distress. She is stable for transport
[2018-11-05 15:06] VITALS: BP 116/64
--- NOTE | 2018-11-05 18:45 | EKG REPORT ---
SEVERITY:- ABNORMAL ECG - SINUS TACHYCARDIA LEFT BUNDLE BRANCH BLOCK : Confirmed by: Elliot Galvan 05-Nov-2018 18:44:00
== END 2018-11-05 15:20 | disposition short-term general hospital (02) ==
LOC: ER 09:16
DX: E87.1 Hypo-osmolality and hyponatremia (principal); R40.0 Somnolence; I48.91 Unspecified atrial fibrillation; J44.9 Chronic obstructive pulmonary disease, unspecified; I10 Essential (primary) hypertension
CPT/HCPCS: 93005; 36591; 99285; 96361; 51702; 96365; 96367; 36415; 87040; 87086; 82962; 85025; 85610; 80053; 81001; 82803; 83605; 75809; 70450; 93010; A9270; J7030; J3370; J0692; J3490